=== PATIENT | female | born 1970 | race Caucasian/White ===

== ENCOUNTER 2017-05-17 17:17 | Emergency (ER) | END 2017-05-17 23:45 | disposition home or self-care (01) ==

== ENCOUNTER 2017-09-08 11:13 | Emergency (ER) | END 2017-09-08 13:10 | disposition home or self-care (01) ==

== ENCOUNTER 2018-06-03 21:56 | Emergency (ER) | payer MEDICAID ==
[~2018-06-03] VITALS: Wt 58.0 kg
[~2018-06-03 21:56] MED LIST: CEPH500C PO; CYCL10TA7 PO; CYCL5TAB PO; HYDR-4011 PO; IBUP-1542 PO; KETO5DRO71 OP; NAPR-985 PO
--- NOTE | 2018-06-04 01:47 | ERD ---
ER Documentation Chief Complaint Chief Complaint LEFT PELVIC PAIN/ LOWER BACK PAIN X'S 2 WEEKS HPI This is a 47-year-old female presents emergency department with complaints of left pelvic pain. Stated that she has history of her ovaries removed. M1. Denies headache, head injury, loss of consciousness, dizziness, neck pain, neck stiffness, throat pain, difficulty swallowing, difficulty breathing lying flat, shoulder pain, chest pain, nausea, vomiting, constipation, diarrhea, urinary symptoms, or possibility being , loss of bowel and bladder control, trauma, injury, falls, difficulty walking due to pain, numbness or tingling sensation, calf pain, recent travel, recent major surgery in the last 3 weeks, calf pain, recent long travel, recent exposure to any illness, recent antibiotic use in the last 3 months, fever, chills, seizures. Past medical history: Surgical history: Stated that she has history of hysterectomy. Social: Denies smoking, use of alcoholic beverages, use of illegal drugs. ROS All systems reviewed and are negative except as per history of present illness. Medications Home Meds Active Scripts Metaxalone* (Skelaxin*) 800 Mg Tablet, 800 MG PO TID PRN for MUSCLE SPASMS, #20 TAB Prov:PASILABAN,KLAR F 06/04/18 Ibuprofen* (Motrin*) 600 Mg Tab, 600 MG PO Q6H PRN for PAIN AND OR ELEVATED TEMP, #30 TAB Prov:PASILABAN,KLAR F 06/04/18 Cyclobenzaprine Hcl* (Cyclobenzaprine Hcl*) 10 Mg Tablet, 10 MG PO TID, #15 TAB Prov:GABRIEL BLACKBURN PA-C 09/08/17 Hydrocodone/Acetaminophen (Udall 5-325 Tablet) 1 Each Tablet, 1 TAB PO Q6H PRN for PAIN, #7 TAB Prov:GABRIEL BLACKBURN PA-C 09/08/17 Naproxen* (Naprosyn*) 500 Mg Tablet, 500 MG PO BID PRN for PAIN AND/OR INFLAMMATION, #30 TAB Prov:GABRIEL BLACKBURN PA-C 09/08/17 Naproxen* (Naprosyn*) 500 Mg Tablet, 500 MG PO BID PRN for PAIN AND/OR INFLAMMATION, #20 TAB Prov:JUANCARLOS ROYAL PA-C 05/17/17 Cyclobenzaprine Hcl* (Cyclobenzaprine Hcl*) 10 Mg Tablet, 10 MG PO TID, #15 TAB Prov:JUANCARLOS ROYAL PA-C 05/17/17 Ketotifen Fumarate (ZADITOR) 5 Ml Drops, 5 ML OP BID, #1 BOTTLE Prov:GABRIEL BLACKBURN PA-C 12/18/15 Cyclobenzaprine Hcl* (Cyclobenzaprine Hcl*) 5 Mg Tablet, 5 MG PO Q8H PRN for PAIN, #14 TAB Prov:FITZ LOPEZ PA-C 06/17/15 Ibuprofen* (Motrin*) 600 Mg Tab, 600 MG PO Q6, #20 TAB Prov:FITZ LOPEZ PA-C 06/17/15 Ibuprofen* (Motrin*) 600 Mg Tab, 600 MG PO Q8 for PAIN AND/OR INFLAMMATION, #30 TAB Prov:GRACIELA GODOY MD 03/27/15 Cephalexin* (Cephalexin*) 500 Mg Capsule, 500 MG PO Q6, #20 CAP Prov:GRACIELA GODOY MD 03/27/15 Allergies Allergies: Coded Allergies: No Known Drug Allergies (Verified Allergy, Mild, 03/27/15) PMhx/Soc History of Surgery: Yes (3X C SECTION, TONSILS, HYSTERECTOMY ) Anesthesia Reaction: No Hx Neurological Disorder: No Hx Respiratory Disorders: No Hx Cardiac Disorders: No Hx Psychiatric Problems: No Hx Miscellaneous Medical Probl: Yes (HTN) Hx Alcohol Use: No Hx Substance Use: No Hx Tobacco Use: No Smoking Status: Never smoker Physical Exam Vitals Vital Signs Date Temp Pulse Resp B/P (MAP) Pulse Ox O2 O2 Flow FiO2 Time Delivery Rate 06/04/18 98.3 67 17 141/65 99 Room Air 05:35 (90) 06/03/18 98.3 80 18 162/73 98 21:59 (102) Physical Exam Const: No acute distress Head: Atraumatic Eyes: Normal Conjunctiva ENT: Normal External Ears, Nose and Mouth. Neck: Full range of motion. No meningismus. Resp: Clear to auscultation bilaterally Cardio: Regular rate and rhythm, no murmurs Abd: Soft, non tender, non distended. Normal bowel sounds. Has left-sided CVA tenderness. Negative Aguilera sign. Negative Jessi sign (or test). Negative psoas sign. Negative Rovsing sign. Ambulatory with steady gait without pain to lower abdomen. Skin: No petechiae or rashes Back: No midline or flank tenderness Ext: No cyanosis, or edema Neur: Awake and alert. No neurological deficits. Psych: Normal Mood and Affect Result Diagram: 06/04/1830906/04/18309 Results 24 hrs Laboratory Tests Test 06/04/18 01:50 06/04/18 03:10 Urine Color YELLOW Urine Clarity CLOUDY Urine pH 7.0 Urine Specific [place] 1.018 Urine Ketones NEGATIVE mg/dL Urine Nitrite NEGATIVE mg/dL Urine Bilirubin NEGATIVE mg/dL Urine Urobilinogen NEGATIVE mg/dL Urine Leukocyte Esterase NEGATIVE Mainor/ul Urine Microscopic RBC 1 /HPF Urine Microscopic WBC 10 /HPF Urine Squamous Epithelial Cells MODERATE /HPF Urine Bacteria MODERATE /HPF Urine Hemoglobin 1+ mg/dL Urine Glucose NEGATIVE mg/dL Urine Total Protein NEGATIVE mg/dl Urine Test NEGATIVE White Blood Count 6.7 10^3/ul Red Blood Count 4.30 10^6/ul Hemoglobin 13.0 g/dl Hematocrit 38.5 % Mean Corpuscular Volume 89.5 fl Mean Corpuscular Hemoglobin 30.2 pg Mean Corpuscular Hemoglobin Concent 33.8 g/dl Red Cell Distribution Width 12.7 % Platelet Count 201 10^3/UL Mean Platelet Volume 12.4 fl Immature Granulocytes % 0.100 % Neutrophils % 45.1 % Lymphocytes % 39.5 % Monocytes % 13.4 % Eosinophils % 1.5 % Basophils % 0.4 % Nucleated Red Blood Cells % 0.0 /100WBC Immature Granulocytes # 0.010 10^3/ul Neutrophils # 3.0 10^3/ul Lymphocytes # 2.7 10^3/ul Monocytes # 0.9 10^3/ul Eosinophils # 0.1 10^3/ul Basophils # 0.0 10^3/ul Nucleated Red Blood Cells # 0.0 10^3/ul Sodium Level 141 mmol/L Potassium Level 4.7 mmol/L Chloride Level 106 mmol/L Carbon Dioxide Level 25 mmol/L Anion Gap 10 Blood Urea Nitrogen 15 mg/dl Creatinine 0.44 mg/dl Est Glomerular Filtrat Rate mL/min > 60 mL/min Glucose Level 88 mg/dl Calcium Level 9.3 mg/dl Total Bilirubin 0.3 mg/dl Direct Bilirubin 0.00 mg/dl Indirect Bilirubin 0.3 mg/dl Aspartate Amino Transf (AST/SGOT) 23 IU/L Alanine Aminotransferase (ALT/SGPT) 18 IU/L Alkaline Phosphatase 58 IU/L Total Protein 8.1 g/dl Albumin 4.6 g/dl Globulin 3.50 g/dl Albumin/Globulin Ratio 1.31 Lipase 154 U/L Current Medications Medications Dose Sig/Murtaza Start Time Status Last (Trade) Ordered Route PRN Stop Time Admin Dose Reason Admin Ketorolac 30 mg ONCE STAT 06/04/18 DC 06/04/18 Tromethamine IM 02:42 03:13 (Toradol) 06/04/18 02:44 1 tab ONCE ONCE 06/04/18 DC 06/04/18 Acetaminophen PO 03:00 03:12 / 06/04/18 03:01 Hydrocodone Bitart (Udall (5/325)) Procedures/MDM Diagnostic tests: HCG urine: Negative. Urinalysis: Reviewed. Blood works: Reviewed. Ultrasound of the kidneys: Unremarkable renal ultrasound. No hydronephrosis or obstructive uropathy. Treatment: Toradol IM. Udall p.o. Re-evaluation: No CVA tenderness. Negative Aguilera sign. Negative [place] sign (or test). Negative psoas sign. Negative Rovsing sign. Able to jump twice without developing lower abdominal pain. Differential diagnosis I have low suspicion for sepsis, pancreatitis, cholecystitis, diverticulitis, diverticulitis with abscess, bowel obstruction, appendicitis, obstructing kidney stone, septic stone, nephrolithiasis, ovarian torsion, ovarian cyst rupture. Final diagnosis: Flank pain. Muscle pain. Prescription: Motrin. Flexeril. Follow-up with PCP in the next 24-48 hours. Come back here in the emergency department for any new symptoms or any worsening symptoms. All questions and concerns were answered. Patient and family members verbalized understanding and agreed with plan of care. Hemodynamically stable on discharge. Departure Diagnosis: Primary Impression: Flank pain Additional Impression: Muscle pain Condition: Stable Additional Instructions: Follow-up with PCP in the next 24-48 hours. Come back here in the emergency department for any new symptoms or any worsening symptoms. TORY CERNA Jun 04, 2018 01:47
[2018-06-04] MEDS ORDERED: KETOROLAC 30 MG INJ IM STA (02:42)
[2018-06-04] MEDS ORDERED: HYDROCODONE/APAP (5/325) TAB PO ONE (03:00)
[2018-06-04] MEDS ORDERED: IBUP-1542 PO (04:41)
[2018-06-04] MEDS ORDERED: META-121 PO (04:41)
[2018-06-04 05:35] VITALS: BP 141/65; PULSE 67; RESP 17
== END 2018-06-04 05:36 | disposition home or self-care (01) ==
LOC: FTE 21:56
DX: M79.10 Myalgia, unspecified site (principal); R10.9 Unspecified abdominal pain; I10 Essential (primary) hypertension
CPT/HCPCS: 76775; 80053; 81001; 83690; 84703; 85025; 87086; J1885; Z7610; 96372